=== PATIENT | male | born 1970 | race Caucasian/White ===

== ENCOUNTER 2025-04-08 20:46 | Emergency (ER) | payer OTHER, SELFPAY | END 2025-04-08 22:07 | disposition home or self-care (01) | LOC: CSHERS 20:46 | DX: S86.012A Strain of left Achilles tendon, initial encounter (principal); X50.0XXA Overexertion from strenuous movement or load, initial encounter; Y93.67 Activity, basketball | CPT/HCPCS: 99283 ==